=== PATIENT | female | born 1970 | race Caucasian/White ===

== ENCOUNTER 2020-09-10 16:35 | Emergency (ER) | payer BC | END 2020-09-10 16:59 | disposition home or self-care (01) | LOC: JVIRT 16:35 | DX: Z11.52 Encounter for screening for COVID-19 (principal) | CPT/HCPCS: C9803; G2012-GT; U0003 ==

== ENCOUNTER 2023-11-04 04:04 | Day surgery (SDC) | payer BC ==
[2023-10-25 13:11] VITALS: BMI 22.1
[2023-11-04] MEDS ORDERED: PROPOFOL 20 ML ONE (12:38)
[2023-11-04] MEDS ORDERED: MIDAZOLAM HCL 2 MG/2 ML SINGLE DOSE VIAL ONE (12:39)
[2023-11-04] MEDS: ceFAZolin SODIUM 1 GM VIAL IVPB ONE (13:08)
[2023-11-04] MEDS ORDERED: DEXAMETHASONE SOD PHOSPHATE 4 MG/1 ML VIAL ONE (13:09)
[2023-11-04] MEDS ORDERED: ONDANSETRON 4 MG/2 ML VIAL ONE (13:09)
[2023-11-04] MEDS ORDERED: KETOROLAC TROMETHAMINE 30 MG/1 ML VIAL ONE (13:37)
[2023-11-04] MEDS ORDERED: oxyCODONE HCL 5 MG TABLET PO PRN (14:01)
[2023-11-04] MEDS ORDERED: ONDANSETRON 4 MG/2 ML VIAL IVPUSH PRN (14:01)
[2023-11-04] MEDS ORDERED: LACTATED RINGERS SOLUTION 1,000 ML IV SCH (14:15)
[2023-11-04 16:32] VITALS: RESP 16
[2023-11-04 16:38] VITALS: BP 110/60; PULSE 75; TEMP 97
== END 2023-11-04 15:00 | disposition home or self-care (01) ==
LOC: JASU-SURG 04:04
PROVIDERS: ATTEND Obstetrics & Gynecology
PROC: 0UB98ZZ Excision of Uterus, Via Natural or Artificial Opening Endoscopic (ICD-10-PCS; principal; 2023-11-04 11:30)
DX: N84.0 Polyp of corpus uteri (principal)
CPT/HCPCS: 81025; 86850; 86900; 86901; 88305-TC; 94760